=== PATIENT | male | born 1955 | race Caucasian/White ===

== ENCOUNTER 2019-03-31 15:18 | Emergency (ER) | payer OTHER ==
[~2019-03-31] VITALS: Ht 175.3 cm; Wt 81.7 kg
[2019-03-31] MEDS ORDERED: NAPROSYN500 M1 PO (16:31)
[2019-03-31 16:53] VITALS: BP 133/77
== END 2019-03-31 16:54 | disposition home or self-care (01) ==
LOC: M.ERS 15:18
DX: M25.511 Pain in right shoulder (principal); M25.562 Pain in left knee; I10 Essential (primary) hypertension; F17.210 Nicotine dependence, cigarettes, uncomplicated